=== PATIENT | female | born 1935 | race African-American/Black ===

== ENCOUNTER 2019-11-29 19:51 | Emergency (ER) | payer BC ==
[~2019-11-29] VITALS: Ht 165.1 cm; Wt 53.0 kg
[~2019-11-29 19:51] MED LIST: KV10 PO; LISI40TA4 PO
[2019-11-29] MEDS ORDERED: LORAZEPAM 1MG TABLET PO ONE (20:30)
[2019-11-29 21:27] LABS: CHLORIDE 112 mEq/L (98-107)
[2019-11-29 21:30] LABS: PROTHROMBIN TIME 10.1 sec (9.6-11.0)
[2019-11-29 21:31] LABS: BASOPHILS % 0.9 % (0.0-2.0); HEMATOCRIT. 36.4 % (36.0-48.0); LYMPHOCYTES % 23.2 % (20.0-50.0); MEAN CORPUSCULAR HEMOGLOBIN 30.5 pg (28.0-32.0); MEAN CORPUSCULAR VOLUME 92.3 fL (81.0-99.0); MEAN PLATELET VOLUME 8.8 fl (7.4-10.4); NEUTROPHILS % 60.9 % (40.0-76.0); PLATELET 197 x1000/uL (130-400); RED BLOOD CELL COUNT 3.94 mill/uL (4.2-5.4); RED CELL DISTRIBUTION WIDTH 14.1 % (11.6-14.6)
[2019-11-29 22:31] VITALS: BP 159/60
== END 2019-11-29 22:32 | disposition home or self-care (01) ==
LOC: ER 19:51
DX: R07.89 Other chest pain (principal); F41.9 Anxiety disorder, unspecified; I10 Essential (primary) hypertension
CPT/HCPCS: 36415; 71045; 80053; 84484; 85025; 93005; 99285